=== PATIENT | female | born 1935 ===

== ENCOUNTER 2018-07-24 11:57 | Emergency (ER) | payer OTHER ==
[~2018-07-24] VITALS: Ht 157.5 cm; Wt 53.1 kg
[2018-07-24] MEDS ORDERED: VISTARIL25 MG PO (12:07)
[2018-07-24] MEDS ORDERED: VISTARIL50 MG PO (12:07)
[2018-07-24] MEDS ORDERED: AVAPRO150 MG PO (12:07)
== END 2018-07-24 13:08 | disposition home or self-care (01) ==
LOC: ER 11:57
DX: S20.212A Contusion of left front wall of thorax, initial encounter (principal); W18.09XA Striking against other object with subsequent fall, initial encounter; Y93.89 Activity, other specified; Y92.89 Other specified places as the place of occurrence of the external cause; Y99.8 Other external cause status